=== PATIENT | female | born 1960 | race Caucasian/White ===

== ENCOUNTER 2020-01-10 12:08 | Emergency (ER) | payer SELFPAY ==
--- OUTSIDE RECORDS SUMMARY | 2020-01-10 12:09 | XMS REPORT | Continuity of Care Document ---
:1960 Author Organization [facility] t Address [address] [place] [address] Care Team Providers Name Role Phone Unavailable Unavailable Unavailable Problems This patient has no known problems. Allergies, Adverse Reactions, Alerts This patient has no known allergies or adverse reactions. Medications This patient has no known medications. Procedures This patient has no known procedures. Results Test Description Test Time Test Comments Results Result Comments Source RPR FOR SERUM ONLY 2019-06-10 05:12:00 Test Item Value Reference Range Interpretation Comme nts RPR (test code = RPR) NONREACTIVE NONREACTIVE NR = NON-REACTIVE R = REACT GERARD % HEMOGLOBIN A1C (GLYCATED)2019-06-10 02:17:00 Test Item Value Reference Range Interpretation Comments HEMOGLOBIN A1C (test 5.8 % 0-6 TH ERAPEUTIC TARGET code = GLYCO-) FOR THE TREAT MENT OF DIABETES M ELLITUS PATIENTS IS < 7 % HBA1C. [employer] [employer]. DIABETES CARE 2002;25:S33-S49 LIPID [id number] 02:16:00 Test Item Value Reference Range Interpretation Comments CHOLEST (test code = 196 MG/DL 0-200 CHOLEST) TRIGLYCE (test code = 263 MG/DL 0-150 H TRIGLYCE) HDL (test code = HDL) 40 MG/DL 35-90 NEGATI VE RISK FACTOR FOR HEART DISEA SE IF HDL >/=60 mg/dl MAJOR RISK FACTOR FOR HEART DISEASE IF HDL <40 mg/dL CALC LDL (test code = 103 MG/DL <100 H CALC LDL) BMP, BASIC METABOLIC [id number] 21:13:00 Test Item Value Reference Range Interpretation Comments SODIUM (test code = 141 MMOL/L 137-145 NA) K+ (test code = 3.4 MMOL/L 3.5-5.1 L PLEASE NOTE NEW KSERUM) REFERENCE RANGE (S) IN EFFECT EFFECTIVE 010 - NEW ANALYZER (V ITROS 5600) CHLORIDE (test code 116 MMOL/L 98-107 H = CL) CO2 (test code = 19 MMOL/L 22-30 L CO2) BUN (test code = 14 MG/DL 7-17 BUN) CREA (test code = 0.5 MG/DL 0.7-1.2 L CREA) GLUCOSE (test code 75 MG/DL 70-99 Fasting glucose = GLUCOSE) normal <100 MG/ DL- [place] [employer] recommendation* * CALCIUM (test code 6.8 MG/DL 8.4-10.2 LL = CABLOOD) GFR (test code = 135 A GFR of >9 0 GFR) mL/min/1.73m2 mL/min/1.73m2 is considered norm al. RESULTS VERIFIED.C'd TO Pito DOOLEY,RN/ER @ 2113 06/09/19--[id number] 20:14:00 Test Item Value Reference Range Interpretation Comments WBC (test code = 10.2 K/UL 3.5-10.9 WBC) RBC (test code = 4.20 M/UL 4.0-5.0 RBC) HGB (test code = 12.2 G/DL 11.5-15.5 HGB) HCT (test code = 39.6 % 34-46 HCT) MCV (test code = 94.3 FL 80-98 MCV) MCH (test code = 29.0 PG 28-32 MCH) MCHC (test code = 30.8 G/DL 32.5-36.5 L MCHC) RDW (test code = 13.0 % 11.5-14.5 RDW) PLT (test code = 244 K/UL 150-450 PLT) MPV (test code = 11.2 FL 7.4-10.4 H MPV) MANDIFF (test code = NO MANDIFF) SCAN (test code = YES SCAN) NEUT% (test code = 56.1 % 40-75 NEUT%) LYMPH% (test code = 30.3 % 24-44 LYMPH%) MONO% (test code = 7.8 % 0-13 MONO%) EOS% (test code = 4.5 % 0-4 H EOS%) BASO % (test code = 0.9 % 0-2 BASO%) IG (test code = IG) 0 % 0-1 IG% (test code = 0.4 % 0-1 IG% = Metam yelocytes, IG%) Myelocytes, and Promyelocytes. (Immature neutr ophils not including " bands".) > 3% IG indic ates risk of sepsis NRBC% (test code = 0 /100 WBC NRBC%) PLT-EST (test code = NORMAL NORMAL PLT-EST) ABS NEUT (test code 5.7 K/UL 1.2-7.2 = NEUT) HEPATITIS C ANTIBODY [id number] 16:19:00 Test Item Value Reference Range Interpretation Comments SCRN HCV (test code NEGATIVE NEGATIVE Hepatiti s C Antibody test = SCRN HCV) is for screenin g purposes only. All react lia will be confirmed by additional test ing. ER SCREEN FOR HIV 16:19:00 Test Item Value Reference Range Interpretation Comments HIV 1/2 AB (test NEGATIVE NEGATIVE This test i s used for code = SCRN HIV) SCREENING p urposes only. All reactive re sults are prelimenary and confirmation re sults will follow. URINE DRUG [id number] 16:15:00 Test Item Value Reference Range Interpretation Comments AMPHET (test code = NEGATIVE NEGATIVE This is an unconfirmed BAMP) screening. Res ult are to be used for medical purposes (treat ment) only. Not inte nded for non-medical pur poses. Cut-off concent ration for a positive result for each drug: Amphetamine - 1 ,000 ng/ml Barbitura te - 200 ng/ml Benzodiaz epine - 200 ng/ml Canna binoids - 50 ng/ml Coca ine - 300 ng/ml Opiat es - 300 ng/ml PCP - 25 ng/ml BARBITURATES (test NEGATIVE NEGATIVE code = BBAR) BENZO (test code = POSITIVE NEGATIVE A BBENZ) CANNABS (test code = NEGATIVE NEGATIVE BCANN) COCAINE (test code = NEGATIVE NEGATIVE BCOC) OPIATES (test code = POSITIVE NEGATIVE A BOPI) PCP (test code = NEGATIVE NEGATIVE BMTPCP) [id number] 15:26:00 Test Item Value Reference Range Interpretation Comments GLUCOSE (test code = URGLU) NEGATIVE MG/DL NEG-100 BILIRUBN (test code = URBILI) NEGATIVE NEGATIVE KETONE (test code = URKET) TRACE MG/DL NEGATIVE BLOOD (test code = URBLD) NEGATIVE UR PH (test code = URPH) 5.5 5.0-7.5 PROTEIN (test code = URPRO) 30 MG/DL NEGATIVE NITRITES (test code = URNIT) NEGATIVE NEGATIVE UROBILINGEN (test code = 1.0 EU/DL 0.2-1.0 URURO) LEUKOCYT (test code = URLEU) MODERATE NEGATIVE UA COLOR (test code = UA YELLOW YELLOW COLOR) CLARITY (test code = CLARITY) CLOUDY CLEAR SP GRAV (test code = URSPGRAV) 1.029 1.000-1.025 H UAMICRO (test code = UAMICRO) YES WBC (test code = URWBC) 16 /HPF 0-5 H RBC (test code = URRBC) 5 /HPF 0-2 H CASTS (test code = CAST) 62 /LPF 0-3 H CASTTYPE (test code = HYALINE CASTTYPE) UR EPI (test code = EPI) 214 /LPF BACTERIA (test code = NEGATIVE NONE BACTERIA) BLOOD ALCOHOL (ETOH)2019-06-09 14:42:00 Test Item Value Reference Range Interpretation Comments ALCOHOL BLOOD LEVEL <10 MG/DL 0-10 Results are to be used (test code = ALC BLD) for me dical purposes (treatment) onl y. Not intended for no n medical purpose s. [id number] 14:42:00 Test Item Value Reference Range Interpretation Comments SODIUM (test code = 140 MMOL/L 137-145 NA) K+ (test code = 5.6 MMOL/L 3.5-5.1 H PLEASE NOTE NEW KSERUM) REFERENCE RANGE (S) IN EFFECT EFFECTIVE 010 - NEW ANALYZER (V ITROS 5600) CHLORIDE (test code 106 MMOL/L 98-107 = CL) CO2 (test code = 22 MMOL/L 22-30 CO2) BUN (test code = 18 MG/DL 7-17 H BUN) CREA (test code = 0.8 MG/DL 0.7-1.2 CREA) GLUCOSE (test code 123 MG/DL 70-99 H Fasting glucose = GLUCOSE) normal <100 MG/ DL- [place] [employer] recommendation* * CALCIUM (test code 10.0 MG/DL 8.4-10.2 = CABLOOD) TOTPROT (test code 7.9 G/DL 6.3-8.2 = TOTPROT) ALBUMIN (test code 4.9 G/DL 3.5-5.0 = ALBSERUM) BILITOT (test code 1.0 MG/DL 0.2-1.3 = BILITOT) AST (test code = 67 U/L 15-46 H AST) PHOSALK (test code 119 U/L 38-126 = PHOSALK) ALT (test code = 43 U/L 13-69 ALT) GFR (test code = 78 A GFR of >9 0 GFR) mL/min/1.73m2 mL/min/1.73m2 is considered norm al. CREATINE [id number] 14:42:00 Test Item Value Reference Range Interpretation Comments CK (test code = CK) 70 U/L 30-135 CT HEAD W/O [id number] 21:09:00[address] [id number] IMAGING REPORTPatient Name: Kathrine NICHOLS of Service: [id number]: [id number] Sex: F Order #: [id number] Room: [facility]: 1960 X-Ray Number: [id number] Record Number: [id number] Hospital Number: [id number] Physician: ANGELO VELASCOOrdering Physician: ANGELO VELASCOPROCEDURE: CT HEAD W/OCONTINDICATIONS: dx headachept c/o elevated BP with headachehx htn, anxietypsvmmbExam: CT brain without contrastComparison: NoneClinical history: HeadacheFindings:The ventricles are normal in size and position.No intracranial masses or midline shift identified.No abnormal extra-axial fluid collectionsare seen.No acute intracranial hemorrhage.No skull fracture identified.The visualized paranasal sinuses are clear.Impression:1. No acute intracranial hemorrhage or process identified.This document hasbeen electronically signed by: Susana Hill MD 05/31/2019 21:08:48Legally authenticated by MODESTA WISEMAN 2019-05-31 20:27:00
[2020-01-10] MEDS ORDERED: MORPHINE 4 MG/ML SYR ONE (13:38)
[2020-01-10] MEDS ORDERED: ONDANSETRON 4 MG (ODT) TAB ONE (13:38)
--- NOTE | 2020-01-10 14:00 | RAD REPORT ---
EXAM DESCRIPTION: Ribs Right - 01/10/2020 1:48 pm CLINICAL HISTORY: PAIN, right-sided pain following fall COMPARISON: No comparisonsNone. FINDINGS: Nondisplaced fractures are present at the anterior aspect of the fourth- seventh ribs. The se are linearly arranged, typical for trauma. No pathologic component seen. No non-displaced rib frac ture suspected. No pneumothorax, pleural effusion or pulmonary contusion. IMPRESSION: Nondisplaced rib fractures anterior right fourth- seventh ribs.
--- NOTE | 2020-01-10 14:02 | RAD REPORT ---
EXAM DESCRIPTION: RAD - Shoulder Left 2 View - 01/10/2020 1:46 pm CLINICAL HISTORY: PAIN COMPARISON: No comparisons TECHNIQUE: Internal and external rotation views of the left shoulder were obtained. FINDINGS: No clavicle fracture. There is remodeling from a prior midshaft clavicle fracture. There i s a resulting superior convex bowing to the clavicle. AC joint is unremarkable. Acromial humeral join t space is normal. Greater tuberosity fracture is present with no new displacement. No pathologic component. No suspici ous soft tissue finding. IMPRESSION: Fracture of the greater tuberosity left humerus without displacement.
--- NOTE | 2020-01-10 14:10 | ER ---
Nurse's Notes [facility] Name: Krysta Carias Age: 59 yrs Sex: Female : 1960 Arrival Date: 01/10/2020 Time: 12:11 Bed 16 Private MD: Diagnosis: Fracture of greater tuberosity left humerus ;Multiple fractures of ribs, right side Presentation: 01/09 12:19 Chief complaint: Patient states: Tripped 8 days ago. Left shoulder pain since, left ll1 foot 2nd digit pain, and right sided rib cage pain since. No LOC. Coronavirus screen: Client denies travel out of the [place] in the last 14 days. At this time, the client does not indicate any symptoms associated with coronavirus-19. Ebola Screen: Patient denies travel to an Ebola-affected area in the 21 days before illness onset. Initial Sepsis Screen: Does the patient meet any 2 criteria? HR > 90 bpm. Risk Assessment: Do you want to hurt yourself or someone else? Patient reports no desire to harm self or others. Onset of symptoms was January 02, 2020. 12:19 Method Of Arrival: Ambulatory 1 12:19 Acuity: FARIDA 3 ll1 12:36 Initial Sepsis Screen: Does the patient have a suspected source of infection? No. iw Patient's initial sepsis screen is negative. Triage Assessment: 14:00 General: Appears in no apparent distress. Behavior is calm, cooperative. Injury iw Description: none. Historical: - Allergies: 12:22 Codeine; ll1 - PMHx: 12:22 Hypertension; ll1 - PSHx: 12:22 sigmoid/colon resection; ; Right wrist surgery with plate placement; ll1 - Immunization history:: Flu vaccine is not up to date. - Social history:: Smoking status: Patient reports the use of cigarette tobacco products, smokes one-half pack cigarettes per day. Screenin:48 Abuse screen: Denies threats or abuse. Denies injuries from another. Nutritional iw screening: No deficits noted. Tuberculosis screening: No symptoms or risk factors identified. Fall Risk None identified. Assessment: 12:30 General: Appears in no apparent distress. Behavior is calm, cooperative. Pain: iw Complains of pain in anterior aspect of left shoulder. Neuro: Level of Consciousness is awake, alert, obeys commands, Oriented to person, place, time, situation, Moves all extremities. Respiratory: Respiratory effort is even, unlabored, Respiratory pattern is regular. Derm: Skin is intact, is healthy with good turgor. Musculoskeletal: Range of motion: limited in left shoulder. 13:50 Reassessment: Patient appears in no apparent distress at this time. Patient and/or iw family updated on plan of care and expected duration. Pain level reassessed. Vital Signs: 12:19 BP 142 / 99; Pulse 114; Resp 18; Temp 99.0; Pulse Ox 100% ; Pain 10/10; ll1 ED Course: 12:11 Patient arrived in ED. mr 12:21 Triage completed. ll1 12:22 Arm band placed on Patient placed in an exam room, on a stretcher. ll1 12:33 Peter Springer PA is PHCP. jr8 12:33 Ayo Medrano MD is Attending Physician. jr8 12:36 Patient has correct armband on for positive identification. iw 12:55 Angelica Guzman RN is Primary Nurse. iw 13:46 XRAY Ribs RIGHT In Process Unspecified. EDMS 13:46 XRAY Shoulder LEFT 2 view In Process Unspecified. EDMS 13:50 Patient did not have IV access during this emergency room visit. iw 13:58 Geovanny Lackey MD is Referral Physician. jr8 14:48 No provider procedures requiring assistance completed. iw Administered Medications: 13:31 Drug: morphine 4 mg Route: IM; Site: right deltoid; iw 13:31 Drug: Zofran (Ondansetron) 4 mg Route: PO; iw Outcome: 14:10 Discharge ordered by . jr8 14:48 Discharged to home ambulatory. iw 14:48 Condition: good 14:48 Discharge instructions given to patient, Instructed on discharge instructions, follow up and referral plans. medication usage, Demonstrated understanding of instructions, follow-up care, medications, Prescriptions given X 1. 14:49 Patient left the ED. iw Signatures: Dispatcher [employer] ABELGeorgie Moreno mr Angelica Guzman, RN RN iw Peter Springer PA PA jr8 Juany Segura RN RN ll1
--- NOTE | 2020-01-10 14:10 | EDPHYS ---
Physician Documentation [facility] Name: Krysta Carias Age: 59 yrs Sex: Female : 1960 Arrival Date: 01/10/2020 Time: 12:11 Bed 16 Private MD: ED Physician Ayo Medrano HPI: 01/09 13:38 This 59 yrs old Female presents to ER via Ambulatory with complaints of Arm jr8 Injury. 13:38 The patient or guardian complains of decreased range of motion, pain, that is acute, jr8 tenderness. The complaints affect the anterior aspect of left shoulder. Onset: The symptoms/episode began/occurred acutely, 1 week(s) ago. Modifying factors: The symptoms are alleviated by nothing. the symptoms are aggravated by nothing. Associated signs and symptoms: Pertinent positives: Rib pain. Severity of symptoms: At their worst the symptoms were moderate, in the emergency department the symptoms are unchanged. The patient has not experienced similar symptoms in the past. The patient has not recently seen a physician. Patient stated that she tripped and fell last week. Since then has had pain to left shoulder and right rib cage. Mainly concerned for shoulder injury as the pain is getting worse. Denies hitting head or neck. Denies LOC at that time . Historical: - Allergies: 12:22 Codeine; ll1 - PMHx: 12:22 Hypertension; ll1 - PSHx: 12:22 sigmoid/colon resection; ; Right wrist surgery with plate placement; ll1 - Immunization history:: Flu vaccine is not up to date. - Social history:: Smoking status: Patient reports the use of cigarette tobacco products, smokes one-half pack cigarettes per day. ROS: 13:38 Eyes: Negative for injury, pain, redness, and discharge, ENT: Negative for injury, jr8 pain, and discharge, Neck: Negative for injury, pain, and swelling, Cardiovascular: Negative for chest pain, palpitations, and edema, Respiratory: Negative for shortness of breath, cough, wheezing, and pleuritic chest pain, Abdomen/GI: Negative for abdominal pain, nausea, vomiting, diarrhea, and constipation, Back: Negative for injury and pain, Skin: Negative for injury, rash, and discoloration, Neuro: Negative for headache, weakness, numbness, tingling, and seizure. 13:38 MS/extremity: Positive for pain, tenderness, of the anterior aspect of left shoulder. Exam: 13:38 Eyes: Pupils equal round and reactive to light, extra-ocular motions intact. Lids and jr8 lashes normal. Conjunctiva and sclera are non-icteric and not injected. Cornea within normal limits. Periorbital areas with no swelling, redness, or edema. ENT: Nares patent. No nasal discharge, no septal abnormalities noted. Tympanic membranes are normal and external auditory canals are clear. Oropharynx with no redness, swelling, or masses, exudates, or evidence of obstruction, uvula midline. Mucous membranes moist. Neck: Trachea midline, no thyromegaly or masses palpated, and no cervical lymphadenopathy. Supple, full range of motion without nuchal rigidity, or vertebral point tenderness. No Meningismus. Cardiovascular: Regular rate and rhythm with a normal S1 and S2. No gallops, murmurs, or rubs. Normal PMI, no JVD. No pulse deficits. Respiratory: Lungs have equal breath sounds bilaterally, clear to auscultation and percussion. No rales, rhonchi or wheezes noted. No increased work of breathing, no retractions or nasal flaring. Abdomen/GI: Soft, non-tender, with normal bowel sounds. No distension or tympany. No guarding or rebound. No evidence of tenderness throughout. Back: No spinal tenderness. No costovertebral tenderness. Full range of motion. Skin: Warm, dry with normal turgor. Normal color with no rashes, no lesions, and no evidence of cellulitis. Neuro: Awake and alert, GCS 15, oriented to person, place, time, and situation. Cranial nerves II-XII grossly intact. Motor strength 5/5 in all extremities. Sensory grossly intact. Cerebellar exam normal. Normal gait. 13:38 Chest/axilla: Palpation: crepitus, is not appreciated, tenderness, that is mild, of the right lateral anterior chest. 13:38 Musculoskeletal/extremity: Extremities: grossly normal except: noted in the anterior aspect of left shoulder: decreased ROM, pain, tenderness, Circulation is intact in all extremities. Sensation intact. Vital Signs: 12:19 BP 142 / 99; Pulse 114; Resp 18; Temp 99.0; Pulse Ox 100% ; Pain 10/10; ll1 Procedures: 13:57 Splinting: Splint applied to left shoulder using sling, applied by nurse. Examined by jr8 wy, post splint application: neurovascular intact, 2+ distal pulses palpable, brisk capillary refill noted, Patient tolerated well. MDM: 12:33 Patient medically screened. jr8 13:57 Data reviewed: vital signs, nurses notes, radiologic studies, plain films. Data jr8 interpreted: Pulse oximetry: on room air is 100 %. Interpretation: normal. Counseling: I had a detailed discussion with the patient and/or guardian regarding: the historical points, exam findings, and any diagnostic results supporting the discharge/admit diagnosis, radiology results, the need for outpatient follow up, a orthopedic surgeon, to return to the emergency department if symptoms worsen or persist or if there are any questions or concerns that arise at home. 01/09 13:01 Order name: XRAY Ribs RIGHT; Complete Time: 14:11 8 01/09 13:01 Order name: XRAY Shoulder LEFT 2 view; Complete Time: 14:11 8 01/09 13:53 Order name: Sling; Complete Time: 13:57 jr8 Administered Medications: 13:31 Drug: morphine 4 mg Route: IM; Site: right deltoid; iw 13:31 Drug: Zofran (Ondansetron) 4 mg Route: PO; iw Disposition: 17:06 Co-signature as Attending Physician, Ayo Medrano MD I agree with the assessment and kdr plan of care. Disposition: 01/10/20 14:10 Discharged to Home. Impression: Fracture of greater tuberosity left humerus , Multiple fractures of ribs, right side. - Condition is Stable. - Discharge Instructions: Chest Wall Pain, Humerus Fracture Treated With Immobilization, Rib Fracture. - Prescriptions for Tramadol 50 mg Oral Tablet - take 1 tablet by ORAL route every 8 hours as needed; 20 tablet. - Medication Reconciliation Form, Thank You Letter, Antibiotic Education, Prescription Opioid Use form. - Follow up: Geovanny Lackey MD; When: 5 - 6 days; Reason: Recheck today's complaints, Continuance of care, Re-evaluation by your physician. - Problem is new. - Symptoms have improved. Signatures: Dispatcher [employer] EDNJ Ayo Medrano MD MD [facility] Angelica Guzman RN RN Peter Springer PA PA jr8 Colton, Lynsay, RN RN ll1 Corrections: (The following items were deleted from the chart) 14:12 14:10 01/10/2020 14:10 Discharged to Home. Impression: Fracture of greater tuberosity jr8 left humerus ; Rib contusion. Condition is Stable. Forms are Medication Reconciliation Form, Thank You Letter, Antibiotic Education, Prescription Opioid Use. Follow up: Geovanny Lackey; When: 5 - 6 days; Reason: Recheck today's complaints, Continuance of care, Re-evaluation by your physician. Problem is new. Symptoms have improved. jr8 14:49 14:12 01/10/2020 14:10 Discharged to Home. Impression: Fracture of greater tuberosity iw left humerus ; Multiple fractures of ribs, right side. Condition is Stable. Discharge Instructions: Chest Wall Pain, Humerus Fracture Treated With Immobilization. Prescriptions for Tramadol 50 mg Oral Tablet - take 1 tablet by ORAL route every 8 hours as needed; 20 tablet. and Forms are Medication Reconciliation Form, Thank You Letter, Antibiotic Education, Prescription Opioid Use. Follow up: Geovanny Lackey; When: 5 - 6 days; Reason: Recheck today's complaints, Continuance of care, Re-evaluation by your physician. Problem is new. Symptoms have improved. jr8
[2020-01-10 14:55] VITALS: BP 142/99; TEMP 99; O2SAT 100
== END 2020-01-10 14:49 | disposition home or self-care (01) ==
LOC: ER 12:08
DX: S42.252A Displaced fracture of greater tuberosity of left humerus, initial encounter for closed fracture (principal); S22.41XA Multiple fractures of ribs, right side, initial encounter for closed fracture; W01.0XXA Fall on same level from slipping, tripping and stumbling without subsequent striking against object, initial encounter; Y93.9 Activity, unspecified; Y92.9 Unspecified place or not applicable; I10 Essential (primary) hypertension; Z88.5 Allergy status to narcotic agent; F17.210 Nicotine dependence, cigarettes, uncomplicated
CPT/HCPCS: 96372; 99283

== ENCOUNTER 2024-05-10 06:59 | Day surgery (SDC) | payer OTHER ==
--- NOTE | 2024-05-09 12:58 | EKG ---
Test Date: 2024-05-09 Test Time: 12:29:53 Blueprint Reader: ZACHARY MEASUREMENT RESULTS: Intervals: Rate: 92 NV: 140 QRSD: 84 QT: 334 QTc: 413 [place]: P: 57 NV: 140 QRS: 59 T: 65 INTERPRETIVE STATEMENTS: Normal sinus rhythm Normal ECG No previous ECG available for comparison Electronically Signed On 05-09-24 12:57:04 POSTBED STITCHER by Edmundo Mills
[2024-05-10] MEDS: Ringers Lactate 1,000 ML IV ONE (07:20)
[2024-05-10] MEDS ORDERED: LIDOCAINE 1% MPF 5 ML VIAL ONE (07:36)
[2024-05-10] MEDS ORDERED: propofoL 200 MG/20 ML VIAL IV ONE (07:36)
[2024-05-10 08:52] VITALS: TEMP 97
[2024-05-10 08:53] VITALS: O2SAT 100
[2024-05-10 08:54] VITALS: BP 116/71
== END 2024-05-10 09:00 | disposition home or self-care (01) ==
LOC: OR 06:59
PROVIDERS: ATTEND Surgery
PROC: 0DBH8ZX Excision of Cecum, Via Natural or Artificial Opening Endoscopic, Diagnostic (ICD-10-PCS; principal; 2024-05-10 08:00)
DX: Z12.11 Encounter for screening for malignant neoplasm of colon (principal); K57.30 Diverticulosis of large intestine without perforation or abscess without bleeding; K64.8 Other hemorrhoids; D12.0 Benign neoplasm of cecum
CPT/HCPCS: 93005; 88305; 45380; J2704; J2003; J7120

== ENCOUNTER 2024-06-14 09:27 | Day surgery (SDC) | payer OTHER ==
[2024-06-13 16:09] LABS: Absolute Basophils 0.1 K/uL (0-0.5); Absolute Eosinophils 1.5 K/uL (0-0.5); Absolute Lymphocytes (CBC) 2.6 K/uL (0.7-4.9); Absolute Monocytes 0.6 K/uL (0.1-1.3); Absolute Neutrophil 3.5 K/uL (1.8-8.0); Basophils % 1.3 % (0-1.3); Eosinophils % 17.9 % (0-4.4); Hematocrit 33.5 % (36.0-45.0); Hemoglobin 11.4 g/dL (12.0-15.0); Lymphocytes % 30.8 % (15.3-44.8); MCH 28.8 pg (27.0-35.0); MCHC 33.9 g/dL (32.0-36.0); MPV 8.4 fL (7.6-11.3); Monocytes % 7.7 % (3.3-12.3); Neutrophils % 42.3 % (41.7-73.7); Nucleated Red Blood Cells % 0.1 % (0-0); Platelets 393 thou/uL (152-406); RBC Red Blood Cell Count 3.95 M/uL (3.86-4.86); Red Cell Distribution Width 14.2 % (12.1-15.2)
[2024-06-13 16:11] LABS: Blood Morphology Comment NOT SEEN (NOT SEEN); Platelet Estimate ADEQ; White Blood Cell Scan OK (OK)
[2024-06-14] MEDS: Ringers Lactate 1,000 ML IV ONE (11:00)
[2024-06-14] MEDS ORDERED: ONDANSETRON 4 MG/2 ML VIAL ONE (11:25)
[2024-06-14] MEDS ORDERED: ROCURONIUM 50 MG/5 ML VIAL IV ONE (11:25)
[2024-06-14] MEDS ORDERED: LIDOCAINE 2% MPF 5 ML VIAL ONE (11:25)
[2024-06-14] MEDS ORDERED: MIDAZOLAM HCL 2 MG/2 ML INJ ONE (11:26)
[2024-06-14] MEDS ORDERED: propofoL 200 MG/20 ML VIAL IV ONE (11:26)
[2024-06-14] MEDS ORDERED: FENTANYL CITR 100 MCG/2 ML ONE (11:26)
[2024-06-14] MEDS ORDERED: SUGAMMADEX SODIUM 200 MG/2 ML VIAL IV ONE (11:44)
[2024-06-14] MEDS ORDERED: HYDROMORPHONE HCL 1 MG/ML INJ ONE ×2 (11:44→13:20)
[2024-06-14] MEDS ORDERED: EPHEDRINE SULF 50 MG/ML VIAL ONE (12:06)
[2024-06-14] MEDS ORDERED: dexAMETHasone 10 MG/ML VIAL ONE (12:20)
[2024-06-14] MEDS: CEFAZOLIN SODIUM 2 GM/VIAL ONE (12:20)
[2024-06-14] MEDS: LIDOCAINE HCL/EPINEPHRINE 20 ML MDV ONE (12:25)
--- NOTE | 2024-06-14 12:57 | P.OP ---
Preoperative diagnosis: Ventral Incisional Incarcerated Hernia Postoperative diagnosis: Ventral Incisional Incarcerated Hernia Primary procedure: Laparoscopic Ventral Hernia Repair with mesh Anesthesia: GETA + Local Estimated blood loss: <5cc Specimen: None Findings: Ventral Incisional Incarcerated Hernia Complications: None Implants: Bard Ventralite ST 11.4cm Round, Sorbafix x 45 Transferred to: Recovery Room Condition: Good
[2024-06-14] MEDS: HYDROMORPHONE HCL 1 MG/ML INJ ONE (13:35)
[2024-06-14] MEDS: FENTANYL CITR 100 MCG/2 ML ONE (13:50)
[2024-06-14] MEDS ORDERED: Ringers Lactate 1,000 ML IV ONE (13:51)
--- NOTE | 2024-06-14 14:08 | OP ---
Date of Procedure: 06/14/2024 Surgeon: Tc Thomas MD, Preoperative Diagnosis: Ventral incisional incarcerated hernia. Postoperative Diagnosis: Ventral incisional incarcerated hernia. Procedure Performed: Laparoscopic ventral hernia repair with mesh. Anesthesia: General endotracheal plus local with 1% lidocaine with epinephrine. Estimated Blood Loss: 5 cc. Specimen: None. Findings: Ventral incisional incarcerated hernia with adipose tissue contained. Complications: None. Implants: Bard Ventralight ST mesh with Echo positioning System, 11.4 cm Bard Ventralight mesh, util ized SorbaFix absorbable fixation tacks x45 tacks utilized. Disposition: The patient was transferred to recovery room in good condition. Procedure In Detail: After informed consent was obtained, the patient was brought to the operating r oom, prepped and draped in the usual sterile fashion. After adequate anesthesia was achieved, I anes thetized the area in the left upper quadrant down to the subcutaneous tissues. A 5 mm 0-degree optic al trocar was introduced into the abdomen without incident or complication. Insufflation was obtaine d to 15 mmHg. At this time, there was no injury to vital structures upon entry into the abdomen. Ad ditional trocar was placed in the left lower quadrant. This was similarly anesthetized and sharply i ncised. A 12 mm trocar was placed under direct visualization without incident or complication. At t his point, I used the LigaSure device to take down significant omental adhesions to the anterior abdo jeremie wall ultimately clearing space down to the infraumbilical position, where an incisional ventral incarcerated adipose containing hernia was appreciated. At this point, I reduced it using the LigaS ure device and ultimately used a combination of both blunt dissection as well as LigaSure to remove a ll the contents from the area. The hernia was approximately 3 cm in diameter and just off midline. At this point, after , I used the Endo Stitch with a 2-0 V-Loc suture ultimately closing th e hernia sac, imbricating the hernia with good approximation of tissues. After the hernia sac was co mpletely imbricated and closed, I then deployed the 11.[address] mesh with Echo positi oning system, 11.4 cm mesh utilized at the central portion of the defect. After this was deployed, I secured to the intraabdominal wall using SorbaFix absorbable fixation tacks. The balloon deployment system found to be intact on the back table. I then secured the mesh with a total of 45 screws to t he anterior abdominal wall of the SorbaFix absorbable fixation type with good approximation of mesh. No additional hemostatic measures required at this point. The 12 mm trocar site was closed using a Tha-Alicia suture passer with an 0 Vicryl in interrupted fashion with good approximation of the tissues. The abdomen was desufflated under direct vision without incident or complication. The leslie ining trocars were removed. All skin incisions were then copiously irrigated and closed with a 4-0 M onocryl in a running fashion. Dermabond was placed over top. The patient tolerated the procedure wi thout incident or complication, transferred to PACU in good condition. All counts were correct at th e end of the case. ASUNCION/RAYMOND Voice ID: [id number] Report ID: [id number]
[2024-06-14] MEDS: HYDROCODONE/APAP 5/325 MG TAB ONE ×2 (14:42→15:17)
[2024-06-14 14:59] VITALS: BP 133/73; O2SAT 100
[2024-06-14 15:54] VITALS: TEMP 97
== END 2024-06-14 15:47 | disposition home or self-care (01) ==
LOC: OR 09:27
PROVIDERS: ATTEND Surgery
PROC: 0WUF4JZ Supplement Abdominal Wall with Synthetic Substitute, Percutaneous Endoscopic Approach (ICD-10-PCS; principal; 2024-06-14 11:15)
DX: K43.0 Incisional hernia with obstruction, without gangrene (principal); I10 Essential (primary) hypertension; E78.00 Pure hypercholesterolemia, unspecified; K21.9 Gastro-esophageal reflux disease without esophagitis
CPT/HCPCS: 85025; 36415; 49594; J2704; J2003; J2250; J3010 ×2; J1100; J1171 ×3; J2405; J7120 ×2; C1781